=== PATIENT | female | born 1980 | race American Indian/Alaskan Native ===

== ENCOUNTER 2017-04-25 21:03 | Emergency (ER) | payer SELFPAY ==
[2017-04-25] MEDS ORDERED: PROVENTIL IH ONE ×2 (21:27→21:31)
--- NOTE | 2017-04-25 22:36 | Emergency Department Report ---
- General Chief Complaint: Adult Asthma Stated Complaint: CP, SHORTNESS OF BREATH Time Seen by Provider: 04/25/17 21:39 Source: patient Mode of arrival: Ambulatory Limitations: No Limitations - History of Present Illness Initial Comments: This is a 37-year-old female nontoxic, well nourished in appearance, no acute signs of distress presents to the ED complaining of the presented ED complaining of asthma exacerbation. Patient stated 3 days ago she had symptoms of cough with green/yellow sputum production, wheezing, and rhinorrhea. Patient states she has history of asthma exacerbations during colds. Patient also stated she has chest pain only during coughing episode. Prior to arrival patient stated she had difficulty breathing but currently denies any shortness of breath, hemoptysis, difficulty breathing, chest pain, nausea, vomiting, numbness, tingling, fever or chills. Patient denies long car rides, recent hospital stays, or recent travels. Denies calf pain or tenderness. Denies taking any contraceptives. States allergies to penicillin. Last menstrual cycle 04/25/17. Past medical history includes asthma. Pt stated she is a cigaret smoker and smokes about a pack a week. MD Complaint: cough, rhinorrhea, other (wheezing) -: Gradual, days(s) (3) Severity: mild Severity scale (0 -10): 0 Consistency: constant Improves With: nothing Worsens With: nothing Associated Symptoms: denies other symptoms, rhinorrhea, cough, other (wheezing) . denies: fever, chills, myalgias, diaphoresis, headache, nasal congestion, sore throat, stiff neck, chest pain, shortness of breath, abdominal pain, nausea , vomiting, diarrhea, dysuria, rash, confusion, right sweats, weight loss, epistaxis, hoarseness, ear pain - Related Data Previous Rx's Medication Instructions Recorded Last Taken Type Docusate Sodium [Colace] 100 mg PO BID PRN #20 capsule 07/04/13 Unknown Rx Hydrocortisone 2.5% [Proctosol-Hc] 28.35 gm DE BID #1 tube 07/04/13 Unknown Rx Polyethylene Glycol 3350 [Miralax 17 gm PO QDAY #7 powd.pack 07/04/13 Unknown Rx 3350] metroNIDAZOLE [Flagyl] 500 mg PO BID #14 tablet 07/04/13 Unknown Rx Cyclobenzaprine HCl [Flexeril] 10 mg PO TID #30 tablet 12/07/13 Unknown Rx HYDROcodone/APAP 7.5-325 [Portis 1 each PO Q6HR PRN #20 tablet 12/07/13 Unknown Rx 7.5/325 mg] Ibuprofen [Motrin 600 MG tab] 600 mg PO Q6H PRN #60 tablet 12/07/13 Unknown Rx ALBUTEROL Inhaler [ProAir HFA 2 puff IH QID PRN #1 inhalation 04/25/17 Unknown Rx Inhaler] Azithromycin [Zithromax Z-POLA] 250 mg PO DAILY #6 tablet 04/25/17 Unknown Rx predniSONE [Deltasone] 20 mg PO BID #10 tab 04/25/17 Unknown Rx Allergies Allergy/AdvReac Type Severity Reaction Status Date / Time Penicillins AdvReac Hives Verified 07/04/13 12:53 ED Review of Systems ROS: Stated complaint: CP, SHORTNESS OF BREATH Other details as noted in HPI Constitutional: denies: chills, fever Eyes: denies: eye pain, eye discharge, vision change ENT: denies: ear pain, throat pain Respiratory: cough, wheezing. denies: shortness of breath, SOB with exertion, SOB at rest, stridor Cardiovascular: denies: chest pain, palpitations Endocrine: no symptoms reported Gastrointestinal: denies: abdominal pain, nausea, diarrhea Genitourinary: denies: urgency, dysuria, discharge Musculoskeletal: denies: back pain, joint swelling, arthralgia Skin: denies: rash, lesions Neurological: denies: headache, weakness, paresthesias Psychiatric: denies: anxiety, depression Hematological/Lymphatic: denies: easy bleeding, easy bruising ED Past Medical Hx - Past Medical History Previous Medical History?: Yes Hx Asthma: Yes - Surgical History Past Surgical History?: Yes Additional Surgical History: tubal ligation, cholecystectomy - Social History Smoking Status: Current Every Day Smoker Substance Use Type: None - Medications Home Medications: Home Medications Medication Instructions Recorded Confirmed Last Taken Type Docusate Sodium [Colace] 100 mg PO BID PRN #20 capsule 07/04/13 Unknown Rx Hydrocortisone 2.5% [Proctosol-Hc] 28.35 gm DE BID #1 tube 07/04/13 Unknown Rx Polyethylene Glycol 3350 [Miralax 17 gm PO QDAY #7 powd.pack 07/04/13 Unknown Rx 3350] metroNIDAZOLE [Flagyl] 500 mg PO BID #14 tablet 07/04/13 Unknown Rx Cyclobenzaprine HCl [Flexeril] 10 mg PO TID #30 tablet 12/07/13 Unknown Rx HYDROcodone/APAP 7.5-325 [Portis 1 each PO Q6HR PRN #20 tablet 12/07/13 Unknown Rx 7.5/325 mg] Ibuprofen [Motrin 600 MG tab] 600 mg PO Q6H PRN #60 tablet 12/07/13 Unknown Rx ALBUTEROL Inhaler [ProAir HFA 2 puff IH QID PRN #1 inhalation 04/25/17 Unknown Rx Inhaler] Azithromycin [Zithromax Z-POLA] 250 mg PO DAILY #6 tablet 04/25/17 Unknown Rx predniSONE [Deltasone] 20 mg PO BID #10 tab 04/25/17 Unknown Rx ED Physical Exam - General Limitations: No Limitations General appearance: alert, in no apparent distress - Head Head exam: Present: atraumatic, normocephalic, normal inspection - Eye Eye exam: Present: normal appearance, PERRL, EOMI. Absent: scleral icterus, conjunctival injection, nystagmus, periorbital swelling, periorbital tenderness Pupils: Present: normal accommodation - ENT ENT exam: Present: normal exam, normal orophraynx, mucous membranes moist, TM's normal bilaterally, normal external ear exam - Neck Neck exam: Present: normal inspection, full ROM. Absent: tenderness, meningismus, lymphadenopathy, thyromegaly - Respiratory Respiratory exam: Present: normal lung sounds bilaterally, wheezes (bilateral upper and lower lobes expiratory). Absent: respiratory distress, rales, rhonchi , stridor, chest wall tenderness, accessory muscle use, decreased breath sounds , prolonged expiratory - Cardiovascular Cardiovascular Exam: Present: regular rate, normal rhythm, normal heart sounds. Absent: bradycardia, tachycardia, irregular rhythm, systolic murmur, diastolic murmur, rubs, gallop - GI/Abdominal GI/Abdominal exam: Present: soft, normal bowel sounds. Absent: distended, tenderness, guarding, rebound, rigid, diminished bowel sounds - Rectal Rectal exam: Present: deferred - Extremities Exam Extremities exam: Present: normal inspection, full ROM, normal capillary refill. Absent: tenderness, pedal edema, joint swelling, calf tenderness - Back Exam Back exam: Present: normal inspection, full ROM. Absent: tenderness, CVA tenderness (L), muscle spasm, paraspinal tenderness, vertebral tenderness, rash noted - Neurological Exam Neurological exam: Present: alert, oriented X3, CN II-XII intact, normal gait, reflexes normal - Psychiatric Psychiatric exam: Present: normal affect, normal mood - Skin Skin exam: Present: warm, dry, intact, normal color. Absent: rash ED Course Vital Signs 04/25/17 04/25/17 04/25/17 21:18 21:33 21:43 Temperature 98.5 F Pulse Rate 89 Pulse Rate [ 89 89 Posterior Bilateral Throughout] Respiratory 18 Rate Respiratory 16 16 Rate [Posterior Bilateral Throughout] Blood Pressure 125/92 O2 Sat by Pulse 99 Oximetry - Reevaluation(s) Reevaluation #1: 04/25/17 22:45 Patient is speaking in full sentences with no signs of distress. Reevaluation #3: 04/25/17 23:02 Patient is resting comfortably with no signs of distress noted. ED Medical Decision Making - Lab Data Result diagrams: 04/25/17 22:26 04/25/17 22:26 - Medical Decision Making ED course; this is a 37-year-old female that presents with upper resp infection 1- patient was examined myself. Patient is stable. Extremities but obtained and indicates for a chest CT due to a lung nodule that is not excluded. Dictated by Dr. Jimenez. 2- CT of chest has been obtained. 3- patient was notified of CT and chest x-ray results with no further questions nor by the patient. 4- patient received albuterol and Solu-Medrol IM in the ED. Patient stated wheezing has subsided and patient denies any chest pain or short of breath. 5- Wells criteria: 0 point. 6- CBC, EKG, BNP, troponin, and cardiac CK has been obtained with all negative and normal findings. 7- patient is discharged with azithromycin and prednisone as well as albuterol inhaler. 8- patient was instructed to follow-up with a primary care doctor 3-5 days or symptoms worsen and continue return to emergency room as soon as possible. 9- At time time of discharge, the patient does not seem toxic or ill in appearance. No acute signs of distress noted. Patient agrees to discharge treatment plan of care. No further questions noted by the patient. Critical care attestation.: If time is entered above; I have spent that time in minutes in the direct care of this critically ill patient, excluding procedure time. ED Disposition Clinical Impression: Wheezing, Asthma exacerbation Upper respiratory infection Qualifiers: URI type: unspecified URI Qualified Code(s): J06.9 - Acute upper respiratory infection, unspecified Disposition: - TO HOME OR SELFCARE Is pt being admited?: No Does the pt Need Aspirin: No Condition: Stable Instructions: Albuterol (By breathing), Prednisone (By mouth), Azithromycin ( By mouth), Asthma (ED), Upper Respiratory Infection (ED) Additional Instructions: follow-up with a primary care doctor 3-5 days or symptoms worsen and continue return to emergency room as soon as possible. Prescriptions: ALBUTEROL Inhaler [ProAir HFA Inhaler] 2 puff IH QID PRN #1 inhalation PRN Reason: Shortness Of Breath Azithromycin [Zithromax Z-POLA] 250 mg PO DAILY #6 tablet predniSONE [Deltasone] 20 mg PO BID #10 tab Referrals: PRIMARY CAREMD [Primary Care Provider] - 3-5 Days ROB PAGE MD [Staff Physician] - 3-5 Days [facility] [Outside] - 3-5 Days [facility] [Outside] - 3-5 Days Forms: Work/School Release Form(ED)
--- NOTE | 2017-04-25 22:47 | XRay Report ---
FINAL REPORT PROCEDURE: XR CHEST ROUTINE 2V TECHNIQUE: Two views of the chest are obtained HISTORY: wheezing sob COMPARISON: No prior studies are available for comparison. FINDINGS: The heart is normal in size. There is no focal infiltrate, pneumothorax or pleural effusion. No hyperinflation is seen. There is a questionable rounded density projected overlying the left transverse process of the T10. This is not seen on lateral view and may be associated with arthritic changes in this area. Lung nodule is not excluded and correlation with chest CT is recommended. IMPRESSION: Nodular density is seen projected overlying the left transverse process of T10. This may be arthritic changes in this region but a lung nodule is not excluded. Correlation with chest CT is recommended.
[2017-04-25 22:57] LABS: Creatine Kinase MB 1.2 ng/mL (0.0-4.0)
[2017-04-25 22:58] LABS: Anion Gap 15 mmol/L; BUN/Creatinine Ratio 11.42; Blood Urea Nitrogen 8 mg/dL (7-17); Calcium 8.8 mg/dL (8.4-10.2); Carbon Dioxide 27 mmol/L (22-30); Chloride 101.5 mmol/L (98-107); Creatine Kinase 163 units/L (30-135); Glucose 113 mg/dL (65-100); Potassium 3.3 mmol/L (3.6-5.0); Sodium 140 mmol/L (137-145)
[2017-04-25 23:12] LABS: Basophils % (Auto) 0.3 % (0.0-1.8); Eosinophils % (Auto) 3.6 % (0.0-4.3); Hematocrit 40.3 % (30.3-42.9); Hemoglobin 12.8 gm/dl (10.1-14.3); Mean Corpuscular HGB Conc 32 % (30-34); Mean Corpuscular Hemoglobin 28 pg (28-32); Mean Corpuscular Volume 88 fl (79-97); Platelet Count 271 K/mm3 (140-440); Red Cell Distribution Width 13.4 % (13.2-15.2)
--- NOTE | 2017-04-26 00:37 | Cat Scan Report ---
FINAL REPORT PROCEDURE: CT CHEST WO CON TECHNIQUE: Computerized axial tomography of the chest was performed without contrast material. This study is performed without intravenous contrast and the sensitivity for pathology, including neoplasms, adenopathy, abscess, pulmonary embolism and aortic dissection, is reduced. HISTORY: wheezing/sob COMPARISON: No prior studies are available for comparison. TECHNICAL QUALITY: Satisfactory. FINDINGS: Heart and pericardium: Normal. Thoracic aorta: Normal. Pulmonary vasculature: Normal. Lymph nodes: No enlarged thoracic lymph nodes. Lungs: Normal. Pleural space: No effusion, thickening, or pneumothorax. Musculoskeletal structures: No significant abnormality. Upper abdominal structures: No significant abnormality. IMPRESSION: Normal examination.
[2017-04-26 04:18] VITALS: BP 119/88
== END 2017-04-26 03:30 | disposition home or self-care (01) ==
LOC: ED 21:03
DX: J45.901 Unspecified asthma with (acute) exacerbation (principal); J06.9 Acute upper respiratory infection, unspecified; F17.210 Nicotine dependence, cigarettes, uncomplicated; Z88.0 Allergy status to penicillin
CPT/HCPCS: 36415; 71020; 71250; 80048; 82550; 82553; 84484; 85025; 93005; 93010; 94640; 96372; 99284; J2930